=== PATIENT | female | born 1965 | race Caucasian/White ===

== ENCOUNTER 2016-09-13 07:41 | Day surgery (SDC) | payer OTHER ==
[2016-09-13] MEDS ORDERED: LACTATED RINGERS 1,000 ML IV ONE (07:50)
[2016-09-13] MEDS ORDERED: fentaNYL 100 MCG/2 ML VIAL IVP ONE (09:03)
[2016-09-13] MEDS ORDERED: MIDAZOLAM 2 MG/2 ML VIAL IVP ONE (09:03)
== END 2016-09-13 07:42 | disposition home or self-care (01) ==
PROC: 0DJD8ZZ Inspection of Lower Intestinal Tract, Via Natural or Artificial Opening Endoscopic (ICD-10-PCS; principal; 2016-09-13 09:00)
DX: Z12.11 Encounter for screening for malignant neoplasm of colon (principal); K64.8 Other hemorrhoids; Z80.3 Family history of malignant neoplasm of breast; Z80.42 Family history of malignant neoplasm of prostate
CPT/HCPCS: 45378; J7120